=== PATIENT | male | born 1980 | race Caucasian/White ===

== ENCOUNTER 2020-09-09 02:52 | Emergency (ER) | payer SELFPAY ==
[2020-09-09 02:59] VITALS: BP 158/99; PULSE 127; O2SAT 99
--- NOTE | 2020-09-09 03:24 | ERPHSYRPT ---
- History of Present Illness Time Seen by Provider: 09/09/20 03:10 Source: patient, police Exam Limitations: no limitations Patient Subjective Stated Complaint: pt c/o being cold Triage Nursing Assessment: Pt brought in by EMS, pt was found laying in a field in the snow, his clothes were wet. pt c/o being cold but has no other c/o at this time. Pt denies any pain. Physician History: This is a 40-year-old white male who was brought in by law enforcement because he was laying outside in the snow. Patient was brought in for public intoxication and for medical clearance for incarceration. Denies any type of pain or discomfort. He is not short of breath. Patient states "I feel pretty good" Severity: mild Associated Symptoms: denies symptoms Allergies/Adverse Reactions: No Known Drug Allergies Allergy (Unverified 09/09/20 03:11) Home Medications: Amphet Asp/Amphet/D-Amphet [Adderall 30 mg Tablet] 1 tab PO DAILY 09/09/20 [History] Ibuprofen [Ibu-200] 2 tab PO Q6H PRN 09/09/20 [History] Hx Tetanus, Diphtheria Vaccination/Date Given: Yes Hx Influenza Vaccination/Date Given: No Hx Pneumococcal Vaccination/Date Given: No Immunizations Up to Date: Yes Travel Risk - International Travel Have you traveled outside of the country in past 3 weeks: No - Coronavirus Screening Are you exhibiting any of the following symptoms?: No Close contact with a COVID-19 positive Pt in past 14-21 Days: No - Review of Systems Constitutional: No Symptoms Eyes: No Symptoms Ears, Nose, & Throat: No Symptoms Respiratory: No Symptoms Cardiac: No Symptoms Abdominal/Gastrointestinal: No Symptoms Genitourinary Symptoms: No Symptoms Musculoskeletal: No Symptoms Skin: No Symptoms Neurological: No Symptoms Psychological: No Symptoms Endocrine: No Symptoms Hematologic/Lymphatic: No Symptoms Immunological/Allergic: No Symptoms All Other Systems: Reviewed and Negative - Past Medical History Pertinent Past Medical History: Yes Neurological History: No Pertinent History ENT History: No Pertinent History Cardiac History: No Pertinent History Respiratory History: No Pertinent History Endocrine Medical History: No Pertinent History Musculoskeletal History: No Pertinent History GI Medical History: No Pertinent History History: No Pertinent History Psycho-Social History: Anxiety, Other Male Reproductive Disorders: No Pertinent History Other Medical History: ADHD - Past Surgical History Past Surgical History: No Neuro Surgical History: No Pertinent History Cardiac: No Pertinent History Respiratory: No Pertinent History Gastrointestinal: No Pertinent History Genitourinary: No Pertinent History Musculoskeletal: No Pertinent History Male Surgical History: No Pertinent History - Social History Smoking Status: Current every day smoker How long have you smoked: 1 Exposure to second hand smoke: Yes Drug Use: none Patient Lives Alone: No - Nursing Vital Signs Nursing Vital Signs: Initial Vital Signs Temperature 96.5 F 09/09/20 02:54 Pulse Rate 127 H 09/09/20 02:54 Respiratory Rate 20 09/09/20 02:54 Blood Pressure 158/99 09/09/20 02:54 O2 Sat by Pulse Oximetry 99 09/09/20 02:54 Pain Scale Pain Intensity 0 - Physical Exam General Appearance: no apparent distress, alert Eye Exam: PERRL/EOMI, eyes nml inspection Ears, Nose, Throat Exam: normal ENT inspection, moist mucous membranes Neck Exam: normal inspection, non-tender, supple, full range of motion Respiratory Exam: normal breath sounds, lungs clear, airway intact, No chest tenderness, No respiratory distress Cardiovascular Exam: tachycardia Gastrointestinal/Abdomen Exam: soft, normal bowel sounds, No tenderness Rectal Exam: not done Back Exam: normal inspection, normal range of motion, No CVA tenderness, No vertebral tenderness Extremity Exam: normal inspection, normal range of motion, pelvis stable Neurologic Exam: alert, oriented x 3, cooperative, 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, normal mood/affect, sensation nml Skin Exam: normal color, warm, dry Lymphatic Exam: No adenopathy SpO2 Interpretation: normal SpO2: 99 O2 Delivery: Room Air - Course Nursing assessment & vital signs reviewed: No Ordered Tests: Active Orders 24 hr Category Date Time Status Clean Catch Urine Specimen STAT Care 09/09/20 03:15 Active Urine Triage Profile Stat Lab 09/09/20 03:16 Ordered - Progress Progress: unchanged Counseled pt/family regarding: lab results, diagnosis, need for follow-up - Departure Departure Disposition: Prison/Halfway Clinical Impression: Medical clearance for incarceration Condition: Stable Critical Care Time: No
== END 2020-09-09 05:05 | disposition home or self-care (01) ==
LOC: ED 02:52
DX: Z02.89 Encounter for other administrative examinations (principal)
CPT/HCPCS: 99283